=== PATIENT | male | born 1950 | race Caucasian/White ===

== ENCOUNTER 2018-12-22 20:46 | Emergency (ER) | payer BC, MEDICARE ==
[2018-12-22] MEDS ORDERED: KETOROLAC TROMETHAMINE INJ 30 MG/ML VIAL IM ONE (21:18)
[2018-12-22] MEDS ORDERED: ONDANSETRON INJ 4 MG/2 ML VIAL IV ONE (21:18)
[2018-12-22] MEDS ORDERED: KETOROLAC TROMETHAMINE INJ 30 MG/ML VIAL IV ONE (21:26)
--- NOTE | 2018-12-22 21:45 | CT ---
EXAM: CT Abdomen and Pelvis Without Intravenous Contrast CLINICAL HISTORY: The patient is 68 years old and is Male; right flank pain TECHNIQUE: Axial computed tomography images of the abdomen and pelvis without intravenous contrast. Sagittal and coronal reformatted images were created and reviewed. This CT exam was performed using one or more of the following dose reduction techniques: automated exposure control, adjustment of the mA and/or kV according to patient size, and/or use of iterative reconstruction technique. COMPARISON: No relevant prior studies available. FINDINGS: Lung bases: No mass. No consolidation. ABDOMEN: Liver: Unremarkable. Gallbladder and bile ducts: Multiple gallstones seen. No CT evidence of cholecystitis. No ductal dilation. Pancreas: Unremarkable. No ductal dilation. Spleen: Unremarkable. No splenomegaly. Adrenals: Unremarkable. No mass. Kidneys and ureters: 5.5 mm calculus at the right ureterovesicular junction resulting in severe right hydroureteronephrosis and the right perinephric stranding. 1 cm calculus in left renal pelvis. No left hydronephrosis. Punctate calculi in the left kidney. Stomach and bowel: Left lateral aspect of the abdomen including several bowel loops excluded from [id number] limiting evaluation. No acute abnormality within the visualized bowel loops. No obstruction. No mucosal thickening. PELVIS: Appendix: No findings to suggest acute appendicitis. Bladder: Unremarkable. No stones. Reproductive: Unremarkable as visualized. ABDOMEN and PELVIS: Intraperitoneal space: Unremarkable. No free air. No significant fluid collection. Bones/joints: Mild facet arthropathy at lumbar levels. No acute fracture. No dislocation. Soft tissues: Small bilateral fat-containing inguinal hernias. Vasculature: Unremarkable. No abdominal aortic aneurysm. Lymph nodes: Unremarkable. No enlarged lymph nodes. IMPRESSION: 1. 5.5 mm calculus at the right ureterovesicular junction resulting in severe right hydroureteronephrosis and the right perinephric stranding. 2. 1 cm calculus in left renal pelvis. No left hydronephrosis. 3. Multiple gallstones seen. No CT evidence of cholecystitis. Electronically signed by: Ortiz Kearney MD 12/22/2018 9:42 PM [employer]
--- NOTE | 2018-12-22 22:06 | ED.PDOC ---
History of Present Illness - General Chief Complaint: Problem Stated Complaint: rt flank pain Time Seen by Provider: 12/22/18 20:59 Source: patient, Vital Signs reviewed Exam Limitations: no limitations - History of Present Illness Initial Comments: c/o "kidney stone" to the right flank. Worst ever. Timing/Duration: just prior to arrival Quality: severe, cramping, sharpness, steady, stabbing Onset Location: right flank Radiation: RLQ Activites at Onset: none Prior abdominal problems: similar symptoms Improving Factors: nothing Worsening Factors: nothing Associated Symptoms: nausea/vomiting Allergies/Adverse Reactions: Allergies NO KNOWN ALLERGY Allergy (Verified 12/22/18 21:05) Home Medications: Ambulatory Orders NK 12/22/18 Review of Systems - Review of Systems Constitutional: States: no symptoms reported Respiratory: States: no symptoms reported Cardiology: States: no symptoms reported Gastrointestinal/Abdominal: States: see HPI Genitourinary: States: see HPI. Denies: dysuria, frequency, hematuria Musculoskeletal: States: see HPI Skin: States: no symptoms reported Neurological: States: no symptoms reported Hematologic/Lymphatic: States: no symptoms reported Past Medical History (General) - Patient Medical History Hx Diabetes: No Surgical History: no surgical history - Vaccination History Hx Influenza Vaccination: No - Triage Comment ED Triage Comment: states history of kidney stones Family Medical History - Family History Mother Family History: Unknown Physical Exam - Physical Exam General Appearance: Alert, Other - Uncomfortable Neck: full range of motion, supple, normal inspection Gastrointestinal/Abdominal: non tender, soft Back Exam: normal inspection, CVA tenderness (R) Extremity: normal range of motion, normal inspection Neurologic: alert, normal mood/affect - except was cursing the staff on arrival, oriented x 3 Skin Exam: normal color, warm/dry Progress - Progress Progress: 12/22/18 22:04 Wants to go home 12/23/18 04:42 ASSESSMENT: 68 yo male with numerous previous stones though none requiring lithotripsy or retrieval presents with a right sided 5.5 mm stone near the UVJ. Pain was greatly decreased with Toradol. Enough so that he felt ready to go home. He has hydrocodone there & he takes Flomax daily. PLAN: 1. Discharge - EKG/XRAY/CT CT Ordered: Yes - 5.5 mm stone at the right UVJ Departure - Departure Clinical Impression: Kidney stone on right side Time of Disposition: 22:05 Disposition: Discharge to Home or Self Care Condition: Good Departure Forms: ED Discharge - Pt. Copy, Patient Portal Self Enrollment Instructions: Renal Colic (DC) Activity: increase activity as tolerated Home Medications: Ambulatory Orders NK 12/22/18 Additional Instructions: Follow up with your doctor in 1-2 days if still having pain.
[2018-12-22 22:08] VITALS: BP 155/90; TEMP 97.8; O2SAT 97
== END 2018-12-22 22:13 | disposition home or self-care (01) ==
LOC: ER 20:46
DX: N13.2 Hydronephrosis with renal and ureteral calculous obstruction (principal); Z87.442 Personal history of urinary calculi
CPT/HCPCS: 74176; J1885; J2405

== ENCOUNTER 2020-01-15 02:36 | Emergency (ER) | payer BC, MEDICARE ==
[2020-01-15 02:47] VITALS: TEMP 96.9; O2SAT 94
--- NOTE | 2020-01-15 03:26 | ED.PDOC ---
History of Present Illness - General Chief Complaint: Problem Stated Complaint: unable to urinate Time Seen by Provider: 01/15/20 03:20 Source: patient, RN notes reviewed, Vital Signs reviewed Exam Limitations: no limitations - History of Present Illness Initial Comments: Patient is a 69-year-old white male who presents with inability to urinate. Patient had some alcohol this evening and patient was unable to urinate. He denies any trauma. Patient had noticed lower abdominal pain is he is unable to urinate. It was cramping in nature. Nothing made it better or worse. The pain resolved after the catheter was placed to be drained 1200 cc of urine. Timing/Duration: this morning Quality: moderate, throbbing Onset Location: suprapubic, urethral Radiation: none Activites at Onset: none Prior abdominal problems: none Improving Factors: nothing Worsening Factors: nothing Associated Symptoms: denies symptoms Allergies/Adverse Reactions: Allergies NO KNOWN ALLERGY Allergy (Verified 01/15/20 03:07) Home Medications: Ambulatory Orders Tamsulosin HCl [Flomax] 0.4 mg PO QPM #14 cap 01/15/20 Review of Systems - Review of Systems Constitutional: States: no symptoms reported EENTM: States: no symptoms reported Respiratory: States: no symptoms reported Cardiology: States: no symptoms reported Gastrointestinal/Abdominal: States: see HPI, abdominal pain. Denies: nausea, vomiting Genitourinary: States: see HPI, pain Musculoskeletal: States: no symptoms reported Skin: States: no symptoms reported Neurological: States: no symptoms reported Endocrine: States: no symptoms reported Hematologic/Lymphatic: States: no symptoms reported All other Systems: Reviewed and Negative Past Medical History (General) - Patient Medical History Hx Seizures: No Hx Stroke: No Hx Dementia: No Hx Asthma: No Hx of COPD: No Hx Cardiac Disorders: No Hx Congestive Heart Failure: No Hx Pacemaker: No Hx Hypertension: No Hx Thyroid Disease: No Hx Diabetes: No Hx Gastroesophageal Reflux: No Hx Renal Disease: No Hx Cancer: No Hx of HIV: No Hx Hepatitis C: No Hx MRSA: No Surgical History: no surgical history - Vaccination History Hx Influenza Vaccination: No - Social History Hx Alcohol Use: Yes Family Medical History - Family History Mother Family History: Unknown Physical Exam - Physical Exam General Appearance: Alert, Anxious, Obvious distress, Well Developed, Well Groomed, Well Hydrated, Well Nourished Eyes, Ears, Nose, Throat Exam: PERRL/EOMI, normal ENT inspection, pharynx normal Neck: non-tender, full range of motion, supple Cardiovascular/Respiratory: regular rate, rhythm, no M/R/G, normal peripheral pulses, no JVD, normal breath sounds, no respiratory distress Gastrointestinal/Abdominal: normal bowel sounds, soft, distended - Suprapubic pain with tenderness to palpation. 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 01/15/20 03:28 Patient's pain resolved immediately upon placement of a urinary catheter which drained 1200 cc of urine. Plan on discharge home with catheter in place. I offered to give patient Flomax and he refused stating that is not the cause of his problem. Shola Falcon M.D. #[id number] - Results/Orders Results/Orders: 01/15/20 02:58 Catheter:Desai ONCE Laboratory Results - last 24 hr 01/15/20 03:10 Urine Color Yellow Urine Appearance Clear Urine pH 5.0 Ur Specific [place] 1.015 Urine Protein Negative Urine Glucose (UA) Negative Urine Ketones Negative Urine Blood Negative Urine Nitrite Negative Urine Bilirubin Negative Urine Urobilinogen 0.2 Ur Leukocyte Esterase Negative Urine RBC 0 Urine WBC 0 Ur Epithelial Cells 0 Urine Bacteria 0 Departure - Departure Clinical Impression: Retention of urine Benign prostatic hyperplasia Qualifiers: Lower urinary tract symptom presence: symptoms present Lower urinary tract symptom detail: urinary retention Qualified Code(s): N40.1 - Benign prostatic hyperplasia with lower urinary tract symptoms; R33.8 - Other retention of urine Time of Disposition: 03:31 Disposition: Discharge to Home or Self Care Condition: Good Departure Forms: ED Discharge - Pt. Copy, Patient Portal Self Enrollment Instructions: DI for Urinary Retention in Men Diet: resume usual diet Activity: increase activity as tolerated Referrals: Milli MAGAÑA REF [Referring] - 1 Week Prescriptions: Tamsulosin HCl [Flomax] 0.4 mg PO QPM #14 cap Home Medications: Ambulatory Orders Tamsulosin HCl [Flomax] 0.4 mg PO QPM #14 cap 01/15/20 Additional Instructions: Patient to follow-up with Dr. Magaña for Desai removal. I discussed the plan of care with the patient he voices understanding.
[2020-01-15 03:39] VITALS: BP 122/73
== END 2020-01-15 03:39 | disposition home or self-care (01) ==
LOC: ER 02:36
DX: R33.8 Other retention of urine (principal); N40.1 Benign prostatic hyperplasia with lower urinary tract symptoms

== ENCOUNTER → 2020-06-17 | Outpatient (CLI) | payer MEDICARE | END | disposition home or self-care (01) | LOC: YCFC.O 14:13 | PROVIDERS: ATTEND Nurse Practitioner | DX: M62.81 Muscle weakness (generalized) (principal); R53.83 Other fatigue ==

== ENCOUNTER → 2020-06-18 | Outpatient (CLI) | payer MEDICARE | END | disposition home or self-care (01) | LOC: YCFC.O 07:06 | PROVIDERS: ATTEND Nurse Practitioner | DX: R53.83 Other fatigue (principal); N40.1 Benign prostatic hyperplasia with lower urinary tract symptoms; R03.0 Elevated blood-pressure reading, without diagnosis of hypertension; Z13.220 Encounter for screening for lipoid disorders ==